=== PATIENT | female | born 1945 | race Caucasian/White ===

== ENCOUNTER 2018-10-22 21:24 | Observation (INO) ==
--- NOTE | 2018-10-22 21:32 | Emergency Department Note ---
Disposition Clinical Impression: Vertigo Disposition: Admitted As Inpatient Condition: Fair Instructions: Vertigo (ED) Reasons to Return/Additional Instructions: Blood pressure screening: When you had your blood pressure taken, if the top number was greater than 120 with a bottom number was greater than 80, I discussed and recommended that you call your primary care provider or a physician of your choice this week to arrange follow-up for further evaluation of your blood pressure. Elevated blood pressures which go untreated can lead to stroke, heart attack, kidney failure and other life-threatening diseases. This is a screening exam and recommendations are to follow with your Family Physician. ( We discussed reasons why the elevation could be occurring at this time. ) If you have had an EKG and/or x-ray performed in the emergency department, it will be reviewed by the transportation planning engineer and/or radiologist. If the review changes your diagnosis or treatment you will be contacted at the phone number you provided. Prescribed outpatient testing: Please call to schedule an appointment for the test that was ordered on the form provided. If you been prescribed an antibiotic: Take it as instructed until itis all finished. If you cannot tolerate that medication for some reason, call your physician for a replacement. If he had a specimen collected for a culture, a culture report takes 48-72 hours to generate. You will be contacted if a change in treatment is needed. Return if your condition worsens or if you have severe pain, fever, vomiting or difficulty breathing. If you received or were prescribed a medication that may cause drowsiness (Tramadol, Phenergan, Trazodone, Diazepam, Lorazepam, Hydroxyzine, Xanax, Hydrocodone, Oxycodone, Codeine, or any other medication) DO NOT drive or drink alcohol, or operate machinery that requires you to be alert for at least 8 hours after taking that medication. If you smoke or chew tobacco products: discuss with your family physician options to help in the cessation in the use of tobacco products. If you to find a physician: Go to [email or web address] or call: [facility] [phone] [facility], You may have multiple scripts and some may have been electronically sent . If you are give a printed script please also take this in when filling the scripts. A diagnosis may require multiple medications to treat and all are important in your healthcare issues. Prescriptions: Meclizine HCl [Verticalm] 50 mg PO Q6-8H #30 tablet Ondansetron ODT [Zofran ODT] 4 mg SL Q6HR #24 tab.rapdis Referrals: Shanique Taveras, MACHINE DESIGN ENGINEER [Primary Care Provider] - Forms: Work/School Release Time of Disposition: 23:41 Nausea/Vomiting/Diarrhea HPI - General Stated complaint: vomiting Time Seen by Provider: 10/22/18 21:32 Source: patient Mode of arrival: ambulatory Limitations: no limitations Nursing Notes Reviewed: Yes Vital Signs Reviewed: Yes - History of Present Illness HPI Narrative: Patient initially woke with symptoms on Monday morning she took it easy, slept off and on all day symptoms resolved by Monday be resumed again last night until she presented here this morning. Patient states she has nausea vomiting is always with positional changes. He states that she feels like she is in a bad car rate. She states the car ride here was normal making her more nauseated sick to the point where she was just dry heaving. She denies though any blurred vision double vision loss vision. She denies any chest pain chest pressure palpitations. She denies any syncope area lightheaded headedness she has diz ziness and vertiginous type symptoms. She denies any headache earache or upper respiratory cold recently she denies any known trauma. She denies diarrhea melena hematochezia hematemesis numbness tingling weight gain or weight loss all systems reviewed and are otherwise negative Pt Subjective Complaint: nausea, vomiting Onset (ago): day(s) Description of emesis: watery Severity: none Consistency: constant Improves with: rest Worsens with: movement Associated symptoms: Reports: loss of appetite, malaise, nausea/vomiting, weakness. Denies: myalgias, chest pain, cough, diaphoresis, fever/chills, headaches, rash, dysuria, shortness of breath, syncope - Related Data Home Medications Medication Instructions Recorded Confirmed Amlodipine Besylate 10 mg PO QAM 09/06/16 01/25/18 Aspirin 81 mg PO DAILY 09/06/16 01/25/18 Atorvastatin Calcium [Lipitor] 80 mg PO HS 09/06/16 01/25/18 Buprenorphine [Butrans] 1 each TD TH 09/06/16 01/25/18 Lidocaine Patch [Lidoderm 5% patch] 1 each TP DAILY PRN 09/06/16 01/25/18 Naproxen Sodium [Aleve] 220 mg PO DAILY PRN 09/06/16 01/25/18 Orphenadrine [Norflex] 100 mg PO QAM 09/06/16 01/25/18 Sertraline [Zoloft] 50 mg PO QPM 09/06/16 01/25/18 Fluticasone Propionate Nasal 2 spr NS BID PRN 12/07/17 01/25/18 [Flonase] Gabapentin [Neurontin] 600 mg PO TID 12/07/17 01/25/18 LORazepam [Ativan] 0.5 mg PO DAILY PRN 12/07/17 01/25/18 Carvedilol 12.5 mg PO BID 01/25/18 01/25/18 Terazosin [Hytrin] 1 mg PO HS 01/25/18 01/25/18 Previous Rx's Medication Instructions Recorded Enoxaparin [Lovenox] 60 mg SQ Q12HR 5 Days #10 syr 01/28/18 Warfarin [Coumadin] 2.5 mg PO 1800 #30 tablet 01/28/18 Hyoscyamine SL [Levsin SL] 0.125 mg SL TID #30 tab.subl 09/21/18 Promethazine [Phenergan] 12.5 mg PO Q8HR #20 tablet 09/21/18 Meclizine HCl [Verticalm] 50 mg PO Q6-8H #30 tablet 10/22/18 Ondansetron ODT [Zofran ODT] 4 mg SL Q6HR #24 tab.rapdis 10/22/18 Allergies Allergy/AdvReac Type Severity Reaction Status Date / Time Sulfa (Sulfonamide AdvReac Swelling Verified 09/21/18 16:02 Antibiotics) of Lip/Tongue/Throat All systems ED: reviewed and negative except as stated. Review of Systems: As Per HPI Constitutional: Denies: fever, chills, weakness Eyes: Denies: eye pain, eye discharge ENT ED: Denies: ear pain, throat pain, dental pain Cardiovascular: Denies: chest pain, palpitations, dyspnea on exertion Respiratory: Denies: cough, dyspnea, wheezes Gastrointestinal: Reports: nausea, vomiting Genitourinary: Denies: urgency, dysuria, frequency Musculoskeletal: Denies: back pain, neck pain Integumentary: Denies: rash, abrasion, lesions Neurological: Reports: vertigo. Denies: headache, weakness Psychiatric: Denies: anxiety, depression Endocrine: Denies: fatigue Hematological/Lymphatic: Denies: easy bleeding Allergic/Immunologic: Denies: facial swelling Past Medical History - Past Medical History Attestation: Yes The following information was validated with the patient. Source: patient, old records reviewed, obtained from family, nursing notes reviewed Medical history: Reports: GERD, hyperlipidemia, hypertension, other Surgical history: Reports: angioplasty/stent, cholecystectomy, hysterectomy, other Psychiatric history: Reports: anxiety - Social History Smoking Status: Never smoker Smokeless Tobacco Status: No Alcohol use: Reports: none Drug use: Reports: none Physical Exam - General Limitations: no limitations, age General appearance: alert, in no apparent distress, anxious - Head Head exam: atraumatic, normocephalic, normal inspection - Eye Eye exam: Present: normal appearance, PERRL, EOMI - ENT ENT exam: normal exam, normal oropharynx, mucous membranes moist - Expanded ENT Exam External ear exam: Present: normal external inspection Mouth exam: Present: normal external inspection Teeth exam: Present: normal inspection Throat exam: Present: normal inspection - Neck Neck exam: Present: normal inspection, full ROM, trachea midline - Chest Chest inspection: Present: normal inspection, symmetric chest wall rise - Respiratory Respiratory exam: Present: normal lung sounds bilaterally - Cardiovascular Cardiovascular exam: Present: regular rate, normal rhythm, normal heart sounds - Abdominal Exam Abdominal exam: Present: soft, Non-Tender, normal bowel sounds. Absent: tenderness, distention, guarding, rebound, rigidity, mass, pulsatile mass - Extremities Exam Extremities exam: Present: normal inspection, full ROM. Absent: tenderness, pedal edema - Expanded Upper Extremity Exam Shoulder exam: Present: normal inspection, full ROM Arm exam: Present: normal inspection, full ROM Elbow exam: Present: normal inspection, full ROM Forearm/Wrist exam: Present: normal inspection, full ROM Hand exam: Present: normal inspection, full ROM Vascular exam: Normal: capillary refill, radial pulse - Expanded Lower Extremity Exam Hip/Pelvis exam: Present: normal inspection, full ROM Upper leg exam: Present: normal inspection, full ROM Knee exam: Present: normal inspection, full ROM Lower leg exam: Present: normal inspection, full ROM Ankle exam: Present: normal inspection, full ROM Foot/toe exam: Present: normal inspection, full ROM Neurovascular/Tendon exam: Present: normal capillary refill, normal fine/light touch. Absent: motor deficit, sensory deficit, tendon deficit Gait: observed and normal - Back Exam Back exam: Present: normal inspection, full ROM. Absent: tenderness - Neurological Exam Neurological exam: Present: alert, oriented X3, CN II-XII intact, normal gait - Expanded Neurological Exam Patient oriented to: Present: person, place, time Coma Scale Eye Opening: Spontaneous Coma Scale Motor Response: Obeys Commands Coma Scale Verbal Response: Oriented Coma Scale Total: 15 - Psychiatric Psychiatric exam: Present: normal affect, normal mood - Skin Skin exam: Present: warm, dry, intact, normal color Course Course Narrative: Patient was seen and evaluated examinations performed patient was given 50 mg of meclizine she seemed to be doing much better with this she was noted to have a low potassium and gave her oral potassium she became nauseated gave her 4 mg Zofran and seemed to be doing well since her try to get her up and move her where she started having dizziness started throwing with dry heaves as result th at has been somewhat uncomfortable taking her home she really did not want to stay but did agree to stay she is afraid that she is numbness or cardiology appointment tomorrow. Patient was admitted discuss case with Dr. Goodrich Prior to discharge patient wanted 5 days off from work instead of following up with family physician or her transportation planning engineer Vital Signs Temperature 97.6 F 10/22/18 21:37 Pulse Rate 64 10/22/18 21:37 Respiratory Rate 16 10/22/18 21:37 Blood Pressure 170/93 10/22/18 21:37 O2 Sat by Pulse Oximetry 98 10/22/18 21:37 Temperature 97.6 F 10/22/18 21:37 Pulse Rate 73 10/22/18 23:05 Respiratory Rate 18 10/22/18 23:05 Blood Pressure 127/81 10/22/18 23:05 O2 Sat by Pulse Oximetry 98 10/22/18 23:05 Oxygen Delivery Oxygen Delivery Room Air Nausea/Vomiting/Diarrhea - Medical Records Medical records reviewed: Yes I reviewed the patient's medical records. - Lab Data Lab results reviewed: Yes I reviewed the patient's lab results. Result diagrams: 10/22/18 22:15 10/22/18 22:15 Lab Results 10/22/18 10/22/18 10/22/18 Range/Units 22:15 22:15 22:15 WBC 8.6 (4.3-11.1) K/mcL RBC 4.83 (3.82-4.97) M/mcL Hgb 14.1 (11.5-15.4) g/dL Hct 43.4 (35.3-44.9) % MCV 89.9 (83.0-100.0) fL MCH 29.2 (28.0-33.3) pg MCHC 32.5 (31.6-35.5) g/dL RDW 13.5 (11.5-14.5) % Plt Count 260 (140-400) K/mcL MPV 10.1 (9.4-12.4) fL Immature Gran % 0.2 (0-4) % Seg Neutrophils % 72.5 % Lymphocytes % 18.0 % Monocytes % 6.7 % Eosinophils % 2.2 % Basophils % 0.4 % Neutrophils # 6.2 (1.6-8.9) K/mcL Lymphocytes # 1.5 (0.6-4.6) K/mcL Monocytes # 0.6 (0.0-1.3) K/mcL Eosinophils # 0.2 (0.0-0.6) K/mcL Basophils # 0.0 (0.0-0.2) K/mcL PT 27.2 H (9.4-12.1) Seconds INR 2.4 APTT 42.1 H (26.0-36.0) Seconds Sodium 138 (136-145) mEq/L Potassium 3.1 L (3.5-5.1) mEq/L Chloride 103 (98-107) mEq/L Carbon Dioxide 26 (23-29) mEq/L BUN 12 (8-23) mg/dL Creatinine 0.59 L (0.60-1.20) mg/dL Est GFR ( Amer) > 60 (> 60) Est GFR (Non-Af Amer) > 60 (> 60) BUN/Creatinine Ratio 20 (6-26) Glucose 124 H (70-105) mg/dL Calculated Osmolality 287 (280-300) Calcium 9.4 (8.6-10.3) mg/dL Total Bilirubin 0.6 (0.3-1.0) mg/dL AST 24 (13-39) Units/L ALT 16 (7-52) Units/L Alkaline Phosphatase 75 (34-104) Units/L Troponin I < 0.03 (< 0.04) ng/mL Serum Total Protein 6.8 (6.4-8.9) g/dL Albumin 4.2 (3.5-5.7) g/dL Globulin 2.6 (2.4-3.5) g/dL Albumin/Globulin Ratio 1.6 (1.1-2.2) - Radiology Data Radiology results reviewed: Yes I reviewed the patient's radiology results. ITS Impressions Chest X-Ray 10/22/18 21:38 IMPRESSION: No acute process. D/ / Aldo Abad MD / Aldo Abad MD Interpreting Provider: Aldo Abad MD Head CT 10/22/18 21:38 IMPRESSION: No acute intracranial abnormality. D/ / Ramon Srivastava MD / Ramon Srivastava MD Interpreting Provider: Ramon Srivastava MD - EKG Data EKG attestation: Yes I reviewed and interpreted this EKG. EKG results narrative: Sinus rhythm PVC rate 63 OR 180 QRS 97 QT 405 access 44 Critical Care Time Critical Care Time: Yes Total Critical Care Time: 35 Attestation: High probability clinically significant life-threatening deterioration patient condition as result of persistent vertigo despite antiemetics and meclizine discussed with Dr. Goodrich for admission
[2018-10-22 22:23] LABS: Basophils % 0.4 %; Eosinophils # 0.2 K/mcL (0.0-0.6); Eosinophils % 2.2 %; Hematocrit 43.4 % (35.3-44.9); Hemoglobin 14.1 g/dL (11.5-15.4); Immature Granulocytes % 0.2 % (0-4); Lymphocytes # 1.5 K/mcL (0.6-4.6); Mean Corpuscular HGB Conc 32.5 g/dL (31.6-35.5); Mean Corpuscular Hemoglobin 29.2 pg (28.0-33.3); Mean Corpuscular Volume 89.9 fL (83.0-100.0); Mean Platelet Volume 10.1 fL (9.4-12.4); Monocytes # 0.6 K/mcL (0.0-1.3); Monocytes % 6.7 %; Neutrophils # 6.2 K/mcL (1.6-8.9); Platelet Count 260 K/mcL (140-400); Red Blood Count 4.83 M/mcL (3.82-4.97); Red Cell Distribution Width 13.5 % (11.5-14.5); Segmented Neutrophils % 72.5 %; White Blood Count 8.6 K/mcL (4.3-11.1)
[2018-10-22 22:30] LABS: INR 2.4; Prothrombin Time 27.2 Seconds (9.4-12.1)
[2018-10-22 22:33] LABS: Activated Partial Thrombo Time 42.1 Seconds (26.0-36.0)
[2018-10-22 22:41] LABS: Alanine Aminotransferase 16 Units/L (7-52); Albumin 4.2 g/dL (3.5-5.7); Albumin/Globulin Ratio 1.6 (1.1-2.2); Alkaline Phosphatase 75 Units/L (34-104); Aspartate Amino Transferase 24 Units/L (13-39); BUN/Creatinine Ratio 20 (6-26); Bilirubin,Total 0.6 mg/dL (0.3-1.0); Blood Urea Nitrogen 12 mg/dL (8-23); Calcium 9.4 mg/dL (8.6-10.3); Carbon Dioxide 26 mEq/L (23-29); Chloride 103 mEq/L (98-107); Globulin 2.6 g/dL (2.4-3.5); Glucose 124 mg/dL (70-105); Osmolality,Calculated 287 (280-300); Potassium 3.1 mEq/L (3.5-5.1); Sodium 138 mEq/L (136-145); Total Protein 6.8 g/dL (6.4-8.9); Troponin I < 0.03 ng/mL (< 0.04); eGFR For African Americans > 60 (> 60); eGFR For Non-African Americans > 60 (> 60)
[2018-10-22] MEDS ORDERED: Potassium Effervescent 25 MEQ TABLET.EFF PO ONE (22:48)
[2018-10-22] MEDS ORDERED: Ondansetron ODT 4 MG TAB.RAPDIS SL ONE ×2 (23:14→23:37)
[2018-10-23] MEDS ORDERED: Ondansetron 4 MG/2 ML VIAL IVP PRN (01:15)
[2018-10-23] MEDS ORDERED: Naloxone 0.4 MG/ML INJ IVP PRN (01:15)
[2018-10-23] MEDS ORDERED: Fluticasone Propionate Nasal 50 MCG/SPRAY BOTTLE NS PRN (01:15)
[2018-10-23] MEDS ORDERED: *HR* Promethazine 25 MG/ML VIAL IVP PRN (01:15)
[2018-10-23] MEDS ORDERED: diazePAM 10 MG/2 ML SYRINGE IVP PRN (01:15)
[2018-10-23] MEDS ORDERED: *HR* LORazepam 0.5 MG TABLET PO PRN (01:15)
[2018-10-23] MEDS ORDERED: 0.9 % Sodium Chloride 1,000 ML IVC SCH (01:15)
[2018-10-23] MEDS ORDERED: ENOXAPARIN 60 MG SQ SCH (06:00)
[2018-10-23 07:20] LABS: BUN/Creatinine Ratio 16 (6-26); Blood Urea Nitrogen 10 mg/dL (8-23); Calcium 8.8 mg/dL (8.6-10.3); Carbon Dioxide 28 mEq/L (23-29); Chloride 107 mEq/L (98-107); Glucose 102 mg/dL (70-105); Osmolality,Calculated 287 (280-300); Potassium 3.4 mEq/L (3.5-5.1); Sodium 139 mEq/L (136-145); eGFR For African Americans > 60 (> 60); eGFR For Non-African Americans > 60 (> 60)
[2018-10-23 07:41] VITALS: BP 111/64
[2018-10-23] MEDS ORDERED: Aspirin 81 MG TAB.CHEW PO SCH (09:00)
[2018-10-23] MEDS ORDERED: Orphenadrine 100 MG TABLET.ER PO SCH (09:00)
[2018-10-23] MEDS ORDERED: Gabapentin 300 MG CAPSULE PO SCH (09:00)
[2018-10-23] MEDS ORDERED: Hyoscyamine SL 0.125 MG TAB.SUBL SL SCH (09:00)
[2018-10-23] MEDS ORDERED: amLODIPine 5 MG TABLET PO SCH (09:00)
--- NOTE | 2018-10-23 10:33 | Internal Med History&Physical ---
Date of Encounter: 10/23/18 Time of Encounter: 10:29 Assessment and Plan (1) Nausea and vomiting Current visit: Yes Status: Acute Improving. Continue IV hydration. Continue Zofran for nausea. Was able to eat del angel and toast this morning. Encourage PO fluids Qualifiers: Vomiting type: unspecified Vomiting Intractability: unspecified Qualified Code(s): R11.2 - Nausea with vomiting, unspecified (2) Vertigo Current visit: Yes Status: Acute Improving. Continue labs in every 6 hours as needed for one week. (3) Coronary artery disease Current visit: Yes Status: Chronic Denies chest pain. Continue current medication Qualifiers: Coronary Disease-Associated Artery/Lesion type: unspecified vessel or lesion type [place] vs. transplanted heart: unspecified whether [place] or transplanted heart Associated angina: angina presence unspecified Qualified Code(s): I25.10 - Atherosclerotic heart disease of [place] coronary artery without angina pectoris (4) Atrial fibrillation Current visit: Yes Status: Chronic Rate and rhythm stable. Continue Coumadin Qualifiers: Atrial fibrillation type: paroxysmal Qualified Code(s): I48.0 - Paroxysmal atrial fibrillation (5) Hypertension Current visit: Yes Status: Chronic Controlled with current medication. Monitor blood pressure. Qualifiers: Hypertension type: unspecified Qualified Code(s): I10 - Essential (primary) hypertension Internal Medicine - H&P: HPI Admitted From: Emergency Dept Plans for Post Hospital Care: Home History of present illness: Ms. Gallegos is a 73 year old female admitted for observation after presenting to the emergency room with a 3 day history of nausea vomiting vertigo. Patient denies any abdominal pain just states she feels weak and tired. States she has been feeling better after IV fluids. Was able to eat toast and del angel this morning. Encouraging PO fluids. Denies fever, chills, shortness of breath or chest pain. Denies diarrhea states last bowel movement was 2 days ago. Lives at home with and granddaughter. States daughter lives across the street. States levsin is effective for her nausea vomiting vertigo. 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 Past Med Surg Social Fam HX - Past Medical History Medical history: asthma, atrial fibrillation, GERD, hyperlipidemia, hyp ertension, kidney stones, other Additional medical history: afib Psychiatric history: anxiety - Past Surgical History Surgical History: appendectomy, breast surgery, cholecystectomy, hysterectomy, other Additional surgical history: rt lumpectomy. rt foot. back fusion. heart stent. bladder tuck - Social History Smoking Status: Never smoker Smokeless Tobacco Status: No Alcohol use: none Drug use: none - Family History Father Hx Family Cardiac Disorders: Yes ([place], cardiac surgeries) Hx Family Neurologic Disorders: Yes (CVA) Mother Hx Family Cancer: Yes (ovarian, colon, breast) Hx Family Neurologic Disorders: Yes (CVA) Internal Medicine - H&P: Meds Amlodipine Besylate 10 mg PO QAM 09/06/16 [History] Aspirin 81 mg PO DAILY 09/06/16 [History] Atorvastatin Calcium [Lipitor] 80 mg PO HS 09/06/16 [History] Buprenorphine [Butrans] 1 each TD TH 09/06/16 [History] Lidocaine Patch [Lidoderm 5% patch] 1 each TP DAILY PRN 09/06/16 [History] Naproxen Sodium [Aleve] 220 mg PO DAILY PRN 09/06/16 [History] Orphenadrine [Norflex] 100 mg PO QAM 09/06/16 [History] Sertraline [Zoloft] 50 mg PO QPM 09/06/16 [History] Fluticasone Propionate Nasal [Flonase] 2 spr NS BID PRN 12/07/17 [History] Gabapentin [Neurontin] 600 mg PO TID 12/07/17 [History] LORazepam [Ativan] 0.5 mg PO DAILY PRN 12/07/17 [History] Carvedilol 12.5 mg PO BID 01/25/18 [History] Terazosin [Hytrin] 1 mg PO HS 01/25/18 [History] Enoxaparin [Lovenox] 60 mg SQ Q12HR 5 Days #10 syr 01/28/18 [Rx] Warfarin [Coumadin] 2.5 mg PO 1800 #30 tablet 01/28/18 [Rx] Hyoscyamine SL [Levsin SL] 0.125 mg SL TID #30 tab.subl 09/21/18 [Rx] Promethazine [Phenergan] 12.5 mg PO Q8HR #20 tablet 09/21/18 [Rx] Meclizine HCl [Verticalm] 50 mg PO Q6-8H #30 tablet 10/22/18 [Rx] Ondansetron ODT [Zofran ODT] 4 mg SL Q6HR #24 tab.rapdis 10/22/18 [Rx] Allergy/AdvReac Type Severity Reaction Status Date / Time Sulfa (Sulfonamide AdvReac Swelling Verified 09/21/18 16:02 Antibiotics) of Lip/Tongue/Throat All Systems PM: A 10-system review of systems was performed and is negative for pertinent findings except as documented above in the HPI. - Constitutional Constitutional: no chills, no fever(s), no night sweats - EENT Eyes: no change in vision, no discharge, no pain, no photophobia Ears: no ear discharge, no ear pain, no tinnitus Nose, mouth and throat: no dysphagia, no nasal discharge, no neck pain, no sore throat - Cardiovascular Cardiovascular ROS IM: no chest pain, no diaphoresis, no dyspnea, no lightheadedness, no palpitations, no syncope - Respiratory Respiratory: no cough, no dyspnea, no wheezing, no excessive phlegm production - Gastrointestinal Gastrointestinal: no abdominal pain, no diarrhea, no hematemesis, no hematochezia, no melena, no nausea, no vomiting - Genitourinary Genitourinary: no change in urinary stream, no dysuria, no flank pain, no hematuria - Musculoskeletal Musculoskeletal ROS IM: no numbness, no tingling - Integumentary Integumentary IM: no rash, no unusual bruising - Neurological Neurological ROS: no confusion, no convulsions, no focal weakness, no numbness, no tingling, no tremor(s) - Hematologic/Lymphatic Hematologic/Lymphatic: no easy bruising - Constitutional Vitals: Temp Pulse Resp BP Pulse Ox 98.2 F 54 16 111/64 96 10/23/18 07:40 10/23/18 07:40 10/23/18 07:40 10/23/18 07:40 10/23/18 07:40 General appearance: Present: A&O X 3, pleasant, no acute distress, answers questions appropriately - Head Head exam: Present: atraumatic, normocephalic - Eye Eye exam: Present: PERRL, conjuntiva pink, sclera anicteric Pupils: Present: PERRL - Neck Neck exam general surgery: Present: supple, trachea midline. Absent: lymphadenopathy - Respiratory Respiratory exam: Present: CTAB. Absent: accessory muscle use, rales, rhonchi, wheezes - Cardiovascular Cardiovascular exam: Present: RRR, +S1, +S2. Absent: diastolic murmur, gallop, rubs, systolic murmur - GI/Abdominal GI/Abdominal exam: Present: normal bowel sounds, soft, no peritoneal signs. Absent: distended, tenderness - Extremities Exam Extremities exam: Present: warm, radial pulses palpable and symmetrical. Absent: calf tenderness, cyanotic, pedal edema - Neurological Exam Neurological exam: Present: CN II-XII intact, oriented X3, no focal deficits. Absent: pronater drift, facial droop, speech deficit - Skin Skin exam: Present: dry, intact Internal Med - H&P Results - Labs CBC & Chem 7: 10/22/18 22:15 10/23/18 06:40 Labs: Short CBC 10/22/18 Range/Units 22:15 WBC 8.6 (4.3-11.1) K/mcL Hgb 14.1 (11.5-15.4) g/dL Hct 43.4 (35.3-44.9) % Plt Count 260 (140-400) K/mcL Neutrophils # 6.2 (1.6-8.9) K/mcL BMP 10/22/18 10/23/18 22:15 06:40 Sodium 138 139 Potassium 3.1 L 3.4 L Chloride 103 107 Carbon Dioxide 26 28 BUN 12 10 Creatinine 0.59 L 0.63 Glucose 124 H 102 Calcium 9.4 8.8 Cardiac Enzymes 10/22/18 Range/Units 22:15 Troponin I < 0.03 (< 0.04) ng/mL Liver Function 10/22/18 Range/Units 22:15 Total Bilirubin 0.6 (0.3-1.0) mg/dL AST 24 (13-39) Units/L ALT 16 (7-52) Units/L Alkaline Phosphatase 75 (34-104) Units/L Albumin 4.2 (3.5-5.7) g/dL - Impressions ITS Impressions Chest X-Ray 10/22/18 21:38 IMPRESSION: No acute process. D/ / Aldo Abad MD / Aldo Abad MD Interpreting Provider: Aldo Abad MD Head CT 10/22/18 21:38 IMPRESSION: No acute intracranial abnormality. D/ / Ramon Srivastava MD / Ramon Srivastava MD Interpreting Provider: Ramon Srivastava MD
--- NOTE | 2018-10-23 10:41 | Discharge Summary ---
Orders not resulted at time of discharge: Pending orders 10/22/18 21:38 ECG 12 lead ECG [ECG] Stat Date of Encounter: 10/23/18 Time of Encounter: 10:38 - Discharge Diagnosis (1) Nausea and vomiting Priority: Primary Status: Acute Comments: Improving. Encourage PO fluids. Was able to eat del angel and test this morning without difficulty. No vomiting since admission. Qualifiers: Vomiting type: unspecified Vomiting Intractability: unspecified Qualified Code(s): R11.2 - Nausea with vomiting, unspecified (2) Vertigo Priority: Primary Status: Acute Comments: Continue labs in every 6 hours sublingual as needed for one week. Follow up with PCP within one week. Improving. (3) Coronary artery disease Priority: Secondary Status: Chronic Comments: Denies chest pain. Continue current medication. Follow up with PCP as scheduled. Qualifiers: Coronary Disease-Associated Artery/Lesion type: unspecified vessel or lesion type [place] vs. transplanted heart: unspecified whether [place] or transplanted heart Associated angina: angina presence unspecified Qualified Code(s): I25.10 - Atherosclerotic heart disease of [place] coronary artery without angina pectoris (4) Atrial fibrillation Priority: Secondary Status: Chronic Comments: Rate and rhythm stable. Continue Coumadin. Follow up with PCP. Qualifiers: Atrial fibrillation type: paroxysmal Qualified Code(s): I48.0 - Paroxysmal atrial fibrillation (5) Hypertension Priority: Secondary Status: Chronic Comments: Controlled with current medication. Monitor blood pressure. Follow up with PCP. Qualifiers: Hypertension type: unspecified Qualified Code(s): I10 - Essential (primary) hypertension Hospital course: Ms. Gallegos is a 73 year old female discharging to home after being admitted for observation after presenting to the emergency room with complaints of nausea, vomiting and vertigo. States this was going on for the past 3 days. Patient states she is feeling much better after IV hydration and was able to eat del angel and toast this morning without difficulty. States she feels fatigue still. Lives with and granddaughter and states that daughter lives across the street and she will have help at home. Will continue Levsin 0.5 mg sublingual TID PRN. Encourage to follow up with family physician within one week. Denies fever, chills, nausea, vomiting or diarrhea at this time. Denies shortness of breath or chest pain. Is on Lovenox injections at home. States Coumadin is on hold, awaiting for back injections. Discussed to continue to follow that physicians orders. Discharge discussed with: patient, family, nurse - Time Spent with Patient Total time spent providing and/or coordinating discharge services: Time spent: Less than 30 minutes - Discharge Medications Prescriptions: New Meclizine HCl [Verticalm] 50 mg PO Q6-8H #30 tablet Ondansetron ODT [Zofran ODT] 4 mg SL Q6HR #24 tab.rapdis No Action Naproxen Sodium [Aleve] 220 mg PO DAILY PRN PRN Reason: Pain Lidocaine Patch [Lidoderm 5% patch] 1 each TP DAILY PRN PRN Reason: Pain Buprenorphine [Butrans] 1 each TD TH Aspirin 81 mg PO DAILY Sertraline [Zoloft] 50 mg PO QPM Atorvastatin Calcium [Lipitor] 80 mg PO HS Orphenadrine [Norflex] 100 mg PO QAM Amlodipine Besylate 10 mg PO QAM Fluticasone Propionate Nasal [Flonase] 2 spr NS BID PRN PRN Reason: Allergy Symptoms LORazepam [Ativan] 0.5 mg PO DAILY PRN PRN Reason: Anxiety Gabapentin [Neurontin] 600 mg PO TID Carvedilol 12.5 mg PO BID Terazosin [Hytrin] 1 mg PO HS Enoxaparin [Lovenox] 60 mg SQ Q12HR 5 Days #10 syr Warfarin [Coumadin] 2.5 mg PO 1800 #30 tablet Hyoscyamine SL [Levsin SL] 0.125 mg SL TID #30 tab.subl Promethazine [Phenergan] 12.5 mg PO Q8HR #20 tablet Home Medications: Amlodipine Besylate 10 mg PO QAM 09/06/16 [History] Aspirin 81 mg PO DAILY 09/06/16 [History] Atorvastatin Calcium [Lipitor] 80 mg PO HS 09/06/16 [History] Buprenorphine [Butrans] 1 each TD TH 09/06/16 [History] Lidocaine Patch [Lidoderm 5% patch] 1 each TP DAILY PRN 09/06/16 [History] Naproxen Sodium [Aleve] 220 mg PO DAILY PRN 09/06/16 [History] Orphenadrine [Norflex] 100 mg PO QAM 09/06/16 [History] Sertraline [Zoloft] 50 mg PO QPM 09/06/16 [History] Fluticasone Propionate Nasal [Flonase] 2 spr NS BID PRN 12/07/17 [History] Gabapentin [Neurontin] 600 mg PO TID 12/07/17 [History] LORazepam [Ativan] 0.5 mg PO DAILY PRN 12/07/17 [History] Carvedilol 12.5 mg PO BID 01/25/18 [History] Terazosin [Hytrin] 1 mg PO HS 01/25/18 [History] Enoxaparin [Lovenox] 60 mg SQ Q12HR 5 Days #10 syr 01/28/18 [Rx] Warfarin [Coumadin] 2.5 mg PO 1800 #30 tablet 01/28/18 [Rx] Hyoscyamine SL [Levsin Sl] 0.125 mg SL TID #30 tab.subl 09/21/18 [Rx] Promethazine [Phenergan] 12.5 mg PO Q8HR #20 tablet 09/21/18 [Rx] Ondansetron ODT [Zofran ODT] 4 mg SL Q6HR #24 tab.rapdis 10/22/18 [Rx] Hyoscyamine SL [Levsin Sl] 0.125 mg SL TID PRN #20 tab.subl 10/23/18 [Rx] Ondansetron [Zofran] 4 mg IVP Q8HR PRN vial 10/23/18 [Rx] Allergies/Adverse Reactions: Allergy/AdvReac Type Severity Reaction Status Date / Time Sulfa (Sulfonamide AdvReac Swelling Verified 09/21/18 16:02 Antibiotics) of Lip/Tongue/Throat Date of admission: 10/23/18 00:52 Primary care physician: Shanique Taveras CNP Discharging clinician: Devon Cardenas Anticipated date of discharge: 10/23/18 - Constitutional Vitals: Temp Pulse Resp BP Pulse Ox 98.2 F 54 16 111/64 96 10/23/18 07:40 10/23/18 07:40 10/23/18 07:40 10/23/18 07:40 10/23/18 07:40 General appearance: Present: A&O X 3, pleasant, no acute distress, answers questions appropriately - Head Head exam: Present: atraumatic, normocephalic - Eye Eye exam: Present: PERRL, conjuntiva pink, sclera anicteric Pupils: Present: PERRL - Neck Neck exam general surgery: Present: supple, trachea midline. Absent: lymphadenopathy - Respiratory Respiratory exam: Present: CTAB. Absent: accessory muscle use, rales, rhonchi, wheezes - Cardiovascular Cardiovascular exam: Present: RRR, +S1, +S2. Absent: diastolic murmur, gallop, rubs, systolic murmur - GI/Abdominal GI/Abdominal exam: Present: normal bowel sounds, soft, no peritoneal signs. Absent: distended, tenderness - Extremities Exam Extremities exam: Present: warm, radial pulses palpable and symmetrical. Absent: calf tenderness, cyanotic, pedal edema - Neurological Exam Neurological exam: Present: CN II-XII intact, oriented X3, no focal deficits. Absent: pronater drift, facial droop, speech deficit - Skin Skin exam: Present: dry, intact - Patient Status Disposition: Home, Self-Care Condition: Good Functional capacity at discharge: independent ambulation Overall status at discharge: patient is progressing back to baseline - Discharge Instructions Follow Up With: Shanique Taveras, ACUPUNCTURE PHYSICIAN [Primary Care Provider] - - Diet and Activity Activity: increase activity as tolerated Diet: advance to your usual diet
--- NOTE | 2018-10-23 15:54 | Electrocardiograph Report ---
[address] [place], [place] [address] Test Date: 2018-10-22 Pat Name: Sharifa Ethel Department: [facility] Room: 113 Gender: F Quality Control Analyst: : 1945 Requested By: Tamika Natarajan Order Number: [id number] Reading MD: Fito Gardner Measurements Intervals [place] Rate: 63 P: 56 DE: 180 QRS: 44 QRSD: 97 T: -1 QT: 405 QTc: 415 Interpretive Statements Sinus rhythm Multiple ventricular premature complexes Diffuse ST and T changes in the inferior and anterolateral leads, consider ischemia Electronically Signed On 10-23-2018 15:52:11 EDT by Fito Gardner
[2018-10-23] MEDS ORDERED: *HR* Warfarin 2.5 MG TABLET PO SCH (18:00)
[2018-10-25] MEDS ORDERED: BUPRENORPHINE TP SCH (00:37)
== END 2018-10-23 11:44 | disposition home or self-care (01) ==
LOC: EMEROOGRE 21:24 → INPGRE 21:24